=== PATIENT | female | born 1995 | race Caucasian/White ===

== ENCOUNTER 2020-12-30 16:14 | Inpatient (IN) ==
[2020-12-30] MEDS ORDERED: PROMETHAZINE 25 MG/1 ML VIAL IM PRN (18:11)
[2020-12-30] MEDS ORDERED: ONDANSETRON 4 MG/2 ML VIAL IV PRN (18:11)
[2020-12-30] MEDS ORDERED: HYDROmorphone 2 MG/1 ML VIAL IV PRN (18:11)
[2020-12-30] MEDS ORDERED: ACETAMINOPHEN 325 MG TABLET PO PRN (18:11)
[2020-12-30] MEDS: KETOROLAC 15 MG/1 ML VIAL IV SCH (18:34)
[2020-12-30] MEDS: PIPERACILLIN/TAZOBACTAM 3,375 MG in SODIUM CHLORIDE 0.9% 100 ML IV SCH (18:37)
[2020-12-30] MEDS: LACTATED RINGERS 1,000 ML IV SCH (18:37)
[2020-12-31] MEDS: KETOROLAC 15 MG/1 ML VIAL IV SCH ×2 (00:51→06:55)
[2020-12-31] MEDS: PIPERACILLIN/TAZOBACTAM 3,375 MG in SODIUM CHLORIDE 0.9% 100 ML IV SCH ×3 (02:53→17:51)
[2020-12-31 06:13] LABS: Basophils % 0.5 % (0.0-0.8); Eosinophils % 0.5 % (0.00-10.9); Hematocrit 36.8 VOL% (35.7-47.0); Hemoglobin 11.1 GM/DL (12.0-16.0); Immature Granulocytes % 0.7 %; Immature Granulocytes Absolute 0.04 #; Lymphocytes % 16.3 % (21.3-54.2); Mean Corpuscular HGB Conc 30.2 GM/DL (32-36); Mean Corpuscular Volume 85.4 FL (87-102); Mean Platelet Volume 9.7 FL (9.6-12.0); Monocytes % 3.2 % (1.7-12.7); Neutrophils % 78.8 % (38.7-73.9); Platelet Count 301 T/CUMM (130-400); Red Blood Count 4.31 MC/CUMM (3.8-5.5); Red Cell Distribution Width 13.9 % (9.3-17.3)
[2020-12-31] MEDS: KETOROLAC 30 MG/1 ML VIAL IV SCH ×3 (06:39→17:51)
[2020-12-31 06:43] LABS: Albumin 3.7 G/DL (3.4-5.0); Bilirubin,Total 3.4 MG/DL (0.2-1.0); Calcium 8.9 MG/DL (8.5-10.1); Potassium 4.4 MMOL/L (3.5-5.1)
[2020-12-31] MEDS: LACTATED RINGERS 1,000 ML IV SCH ×3 (07:11→17:50)
[2020-12-31] MEDS: PANTOPRAZOLE 40 MG TABLET PO SCH (08:54)
[2020-12-31] MEDS: ENOXAPARIN 40 MG/0.4 ML SYRINGE SUBCUT SCH (13:05)
[2020-12-31] MEDS: LEVOTHYROXINE 100 MCG TABLET PO SCH (13:22)
[2021-01-01] MEDS: KETOROLAC 30 MG/1 ML VIAL IV SCH ×4 (00:55→17:37)
[2021-01-01] MEDS: PIPERACILLIN/TAZOBACTAM 3,375 MG in SODIUM CHLORIDE 0.9% 100 ML IV SCH ×3 (02:01→17:37)
[2021-01-01] MEDS: LACTATED RINGERS 1,000 ML IV SCH ×4 (02:04→17:37)
[2021-01-01 05:34] LABS: Basophils % 0.4 % (0.0-0.8); Eosinophils # 0.1 10*3/uL (0.0-0.87); Eosinophils % 1.7 % (0.00-10.9); Hematocrit 32.5 VOL% (35.7-47.0); Hemoglobin 10.2 GM/DL (12.0-16.0); Immature Granulocytes % 0.5 %; Immature Granulocytes Absolute 0.04 #; Lymphocytes # 2.3 10*3/uL (1.4-4.0); Lymphocytes % 29.2 % (21.3-54.2); Mean Corpuscular HGB Conc 31.4 GM/DL (32-36); Mean Corpuscular Volume 83.3 FL (87-102); Mean Platelet Volume 9.5 FL (9.6-12.0); Monocytes % 10.6 % (1.7-12.7); Neutrophils % 57.6 % (38.7-73.9); Platelet Count 288 T/CUMM (130-400); Red Cell Distribution Width 14.3 % (9.3-17.3); White Blood Count 7.9 T/CUMM (4-12)
[2021-01-01] MEDS: LEVOTHYROXINE 100 MCG TABLET PO SCH (05:52)
[2021-01-01 05:54] LABS: Albumin 3.3 G/DL (3.4-5.0); Bilirubin,Direct 2.3 MG/DL (0.0-0.20); Bilirubin,Total 3.1 MG/DL (0.2-1.0); Calcium 8.2 MG/DL (8.5-10.1); Osmolality,Calculated 279.3 MOS/KG (273-304); Potassium 3.5 MMOL/L (3.5-5.1); Total Protein 6.8 G/DL (6.4-8.2)
[2021-01-01] MEDS: PANTOPRAZOLE 40 MG TABLET PO SCH (08:54)
[2021-01-01] MEDS ORDERED: ONDANSETRON 4 MG/2 ML VIAL ONE (09:29)
[2021-01-01] MEDS ORDERED: fentaNYL 100 MCG/2 ML VIAL ONE (09:29)
[2021-01-01] MEDS ORDERED: MIDAZOLAM 2 MG/2 ML VIAL ONE (09:29)
[2021-01-01] MEDS ORDERED: SUCCINYLCHOLINE 200 MG/10 ML VIAL ONE (09:29)
[2021-01-01] MEDS ORDERED: DEXAMETHASONE 4 MG/1 ML VIAL ONE (09:29)
[2021-01-01] MEDS ORDERED: LIDOCAINE 2% 5 ML VIAL ONE (09:29)
[2021-01-01] MEDS ORDERED: ROCURONIUM 50 MG/5 ML VIAL IV ONE (09:29)
[2021-01-01] MEDS ORDERED: propofoL 200 MG/20 ML VIAL IV ONE (09:29)
[2021-01-01] MEDS ORDERED: ONDANSETRON 4 MG/2 ML VIAL IV PRN (09:32)
[2021-01-01] MEDS ORDERED: HYDROmorphone 2 MG/1 ML VIAL IV PRN (09:32)
[2021-01-01] MEDS ORDERED: diphenhydrAMINE 50 MG/1 ML VIAL IV PRN (09:32)
[2021-01-01] MEDS ORDERED: PROMETHAZINE INJ 25 MG in SODIUM CHLORIDE 0.9% 50 ML IV PRN (09:32)
[2021-01-01] MEDS ORDERED: BUPIVACAINE MPF 0.25% 30 ML VIAL ONE (09:34)
[2021-01-01] MEDS ORDERED: LIDOCAINE 1%/EPI INJ 20 ML VIAL ONE (09:34)
[2021-01-01] MEDS ORDERED: HYDROmorphone 2 MG/1 ML VIAL ONE (12:32)
[2021-01-01] MEDS ORDERED: SEVOFLURANE 1 UNIT/15 MINUTE INH ONE (12:32)
[2021-01-01] MEDS ORDERED: KETOROLAC 30 MG/1 ML VIAL ONE (12:32)
[2021-01-01] MEDS ORDERED: TISSUE ADHESIVE 1 EACH APPLICATOR TOP ONE (12:46)
[2021-01-01] MEDS: MEPERIDINE 50 MG/1 ML VIAL IV PRN ×2 (13:25→13:45)
[2021-01-01] MEDS ORDERED: MEPERIDINE 25 MG/1 ML VIAL ONE ×2 (13:25→13:37)
[2021-01-01] MEDS: ENOXAPARIN 40 MG/0.4 ML SYRINGE SUBCUT SCH (14:27)
[2021-01-01 16:22] VITALS: BP 110/68
== END 2021-01-01 18:05 | disposition home or self-care (01) | DRG 769 ==
LOC: N.5E 17:54
PROVIDERS: ADMIT Surgery; ATTEND Surgery